=== PATIENT | female | born 1960 ===

== ENCOUNTER 2017-05-28 07:57 | Emergency (ER) | payer OTHER ==
--- NOTE | 2017-05-28 08:01 | UC ---
Respiratory Complaint HPI - HPI Summary HPI Summary: 56 year old female presents with complains of cough and post nasal drip. - History of Current Complaint Stated Complaint: COUGH Time Seen by Provider: 05/28/17 08:01 Hx Obtained From: Patient Onset/Duration: Sudden Onset Severity Initially: Moderate Severity Currently: Moderate Pain Scale Used: 0-10 Numeric - 5 Character: Cough: Nonproductive Alleviating Factors: Upright Position Associated Signs And Symptoms: Positive: Wheezing, Dizziness, Nasal Congestion - Allergies/Home Medications Allergies/Adverse Reactions: Allergies Allergy/AdvReac Type Severity Reaction Status Date / Time No Known Allergies Allergy Verified 05/28/17 08:05 Home Medications: Home Medications Ibuprofen [Ibuprofen 200 MG] 400 mg PO Q6HR PRN 05/28/17 [History Confirmed ] PMH/Surg Hx/FS Hx/Imm Hx Previously Healthy: Yes - Surgical History Surgical History: None - Family History Known Family History: Positive: None - Social History Alcohol Use: None Substance Use Type: None Review of Systems Constitutional: Negative Skin: Negative Eyes: Negative ENT: Sore Throat, Nasal Discharge, Sinus Congestion, Sinus Pain/Tenderness Respiratory: Shortness Of Breath, Cough Cardiovascular: Negative Gastrointestinal: Negative Genitourinary: Negative Motor: Negative Neurovascular: Negative Musculoskeletal: Negative Neurological: Negative Psychological: Negative All Other Systems Reviewed And Are Negative: Yes Physical Exam Triage Information Reviewed: Yes Vital Signs Reviewed: Yes Eye Exam: Normal ENT: Positive: Pharyngeal erythema, Nasal congestion, Nasal drainage, Sinus tenderness Dental Exam: Normal Neck exam: Normal Neck: Positive: 1 Respiratory Exam: Normal Cardiovascular Exam: Normal Abdominal Exam: Normal Musculoskeletal Exam: Normal Neurological Exam: Normal Psychological Exam: Normal Skin Exam: Normal Respiratory Course/Dx - Differential Dx/Diagnosis Provider Diagnoses: cough. post nasal drip Discharge - Discharge Plan Condition: Stable Disposition: HOME Prescriptions: Amoxicillin PO (*) [Amoxicillin 875 MG (*)] 875 mg PO BID #20 tab Benzonatate CAP* [Tessalon 100 MG CAP*] 100 mg PO TID PRN #30 cap PRN Reason: Cough Guaifenesin-Codeine [Cheratussin AC] 1 teasp PO BEDTIME PRN #120 ml MDD 5 ml PRN Reason: Cough LoraTADine TAB(NF) [Claritin 10 MG TAB(NF)] 10 mg PO DAILY #30 tab Patient Education Materials: Acute Cough (ED) Referrals: Chino Mejia MD [Primary Care Provider] -
[2017-05-28 08:05] VITALS: BP 93/58
== END 2017-05-28 08:22 | disposition home or self-care (01) ==
LOC: UCEAST 07:57
DX: R05 Cough (principal); R09.82 Postnasal drip; R09.81 Nasal congestion
CPT/HCPCS: 99212; G0463